=== PATIENT | female | born 1980 | race Caucasian/White ===

== ENCOUNTER 2016-06-14 06:00 | Inpatient (IN) ==
[2016-06-14] MEDS ORDERED: Metoclopramide 10 MG/2 ML VIAL IVP PRN (06:43)
[2016-06-14] MEDS ORDERED: Famotidine 20 MG/2 ML VIAL IVP PRN (06:43)
[2016-06-14] MEDS ORDERED: miSOPROStol 25 MCG TABLET VG PRN (06:43)
[2016-06-14 06:58] LABS: Basophils # 0.1 K/mcL (0.0-0.2); Basophils % 0.6 %; Eosinophils # 0.2 K/mcL (0.0-0.6); Eosinophils % 1.8 %; Hemoglobin 10.5 g/dL (11.5-15.4); Immature Granulocytes % 1.1 % (0-4); Immature Platelets 3.4 % (1.1-6.1); Lymphocytes # 1.7 K/mcL (0.6-4.6); Mean Corpuscular HGB Conc 33.9 g/dL (31.6-35.5); Mean Corpuscular Hemoglobin 32.3 pg (28.0-33.3); Mean Corpuscular Volume 95.4 fL (83.0-100.0); Mean Platelet Volume 9.2 fL (9.4-12.4); Monocytes # 0.7 K/mcL (0.0-1.3); Neutrophils # 7.2 K/mcL (1.6-8.9); Platelet Count 214 K/mcL (140-400); Red Blood Count 3.25 M/mcL (3.82-4.97); Red Cell Distribution Width 13.9 % (11.5-14.5); Segmented Neutrophils % 72.5 %
[2016-06-14] MEDS: Ringers Solution, Lactated 1,000 ML IVC SCH ×2 (08:04→14:54)
--- NOTE | 2016-06-14 08:21 | OB/GYN History & Physical ---
Date of Encounter: 06/14/16 Time of Encounter: 08:15 Assessment and Plan (1) and not yet delivered in third trimester Current visit: Yes Status: Acute (2) 40 weeks gestation of Current visit: Yes Status: Acute (3) Elective induction of labor planned Current visit: Yes Status: Acute Patient will be induced with Cytotec [place] catheter if contractions space out we will augment with Pitocin plan is to anticipate normal spontaneous vaginal delivery History of Present Illness HPI: Ms. Musa is a 35 year old female 3 para 2 at 40 and 0/7 weeks who presented to labor and delivery for induction of labor secondary to with favorable cervix. Patient's was complicated with BPD and head circumference measuring less than the 2nd percentile. Patient did see maternal medicine the filter was just constitutionally small and serial ultrasounds remain the same. Patient to get NSTs there was no change in heart rate. Patient has been having occasional contractions nothing that she can time, denies any leaking of fluid good movement. Patient has rubella positive, A-, GBS negative Past Med Surg Social Fam HX - Past Medical History Medical history: hypertension, migraine, other (Fibromyalgia) Psychiatric history: depression - Past Surgical History Surgical History: no surgical history - Social History Smoking Status: Current every day smoker Packs per day: .5 Smokeless Tobacco Status: No Alcohol use: none Drug use: none Occupational status: employed Current living situation: Home - Independent Activity Level: Independent ambulation Recent Out of Country Travel Within the Last 8 Weeks: No Exposure or Possible Exposure to Illness During Travel: No - Family History Mother Age: 58 Living Status: Still Living Hx Family Cardiac Disorders: Yes (HTN) Hx Family Respiratory Disorders: No Hx Family Cancer: No Hx Family GI Disorders: No Hx Family Genitourinary Disorders: No Hx Family Endocrine Disorder: No Hx Family Musculoskeletal Disorders: No Hx Family Neuromuscular Disorders: No Hx Family Neurologic Disorders: No Hx Family HEENT Disorders: No Hx Family Autoimmune Disorders: No Hx Family Reproductive Disorders: No Hx Family Psychosocial Disorders: No Hx Family Medical Disorders: Yes (DIABETIC) - Additional Family History Additional family history: Family history noncontributory Obstetrical History - Pregnancies : 3 Para: 2 Livin Medications and Allergies Tablet 1 tab PO DAILY 06/14/16 [History] Allergies Amoxicillin [From Augmentin] Allergy (Verified 12/19/14 10:17) Rash clavulanic acid [From Augmentin] Allergy (Verified 12/19/14 10:17) Rash Erythromycin Base Adverse Reaction (Verified 12/19/14 10:17) Hives prednisone Adverse Reaction (Verified 12/19/14 10:17) See Comments makes tongue raw Review of System OB All systems PM: reviewed and no additional remarkable complaints except as stated Exam - Vital Signs Vital signs: Initial Vital Signs Temp Pulse Resp BP 98.4 F 118 16 136/96 06/14/16 06:17 06/14/16 06:17 06/14/16 06:17 06/14/16 06:17 - Constitutional Constitutional: well developed, well nourished, no acute distress, average body habitus - Neck Neck exam: full ROM - Lungs Respiratory exam: CTAB - Cardiovascular Cardiovascular exam: RRR - Abdomen Abdomen: Present: bowel sounds normal, gravid - Cervix Dilation: 2 Effacement: 50 Station: -3 ([place] catheter placed 30 mL balloon inflated, 25 mg Cytotec placed vaginally) Results Result Diagrams: 06/14/16 06:40 Abnormal lab results RBC 3.25 M/mcL (3.82-4.97) L 06/14/16 06:40 Hgb 10.5 g/dL (11.5-15.4) L 06/14/16 06:40 Hct 31.0 % (35.3-44.9) L 06/14/16 06:40 MPV 9.2 fL (9.4-12.4) L 06/14/16 06:40 All other labs normal. - VTE Reasons for not Prescribing Prophylaxis: Treatment not Indicated - Low risk for VTE
--- NOTE | 2016-06-14 14:04 | OB Labor Progress Note ---
Date of Encounter: 06/14/16 Time of Encounter: 14:02 Labor Progress Note - Subjective Subjective: Pt reports minimal discomfort with contractions. - Cervix Cervix: 4/70/-1 - Heart Tones Heart Tones: Category I, difficulty obtaining continuous tracing by EFM due to maternal habitus - [place]: 2-3 minutes - Interventions Interventions: AROM for moderate amount light MSF. IUPC and FSE placed. - Plan Plan: Continue to monitor. Will augment with Pitocin if needed for adequate contractions. Epidural when requested. Anticipate .
--- NOTE | 2016-06-14 16:02 | OB Labor Progress Note ---
Date of Encounter: 06/14/16 Time of Encounter: 16:00 Labor Progress Note - Subjective Subjective: Pt reports more discomfort with contractions. - Cervix Cervix: no change, 4cm - Heart Tones Heart Tones: Category I - [place]: Q2-3 minutes - Plan Plan: Plan for pitocin augmentation at this time. Anticipate .
[2016-06-14] MEDS ORDERED: Oxytocin 20 units/ LR 1000 mL 20 UNIT/1,000 ML BAG IVC SCH ×2 (16:15→23:30)
[2016-06-14] MEDS ORDERED: *HR* FentaNYL (PF) 100 MCG/2 ML VIAL ONE (17:30)
[2016-06-14] MEDS ORDERED: Bupivacaine-MPF 0.25% 10 ML VIAL ONE (17:30)
[2016-06-14] MEDS ORDERED: *HR* FentaNYL (PF) 100 MCG/2 ML VIAL EP ONE (17:33)
[2016-06-14] MEDS ORDERED: Bupivacaine-MPF 0.25% 10 ML VIAL EP ONE (17:33)
[2016-06-14] MEDS ORDERED: Epidural Premix (fent/bupiv) 110 ML EP ONE (17:35)
[2016-06-14] MEDS ORDERED: Epidural Premix (fent/bupiv) 110 ML EP SCH (17:45)
--- NOTE | 2016-06-14 19:09 | OB Labor Progress Note ---
Date of Encounter: 06/14/16 Time of Encounter: 19:00 Labor Progress Note - Subjective Subjective: Patient more comfortable after her epidural - Cervix Cervix: 5-6/80/-3 - Heart Tones Heart Tones: heart tones 140s reactive occasional early decelerations and contractions every 2-3 minutes irregular - [place]: Contractions every 2-3 minutes irregular - Plan Plan: Continue current care anticipate vaginal delivery
--- NOTE | 2016-06-14 19:26 | Anesthesia Evaluation PreOp ---
Date of Encounter: 06/14/16 Time of Encounter: 11:20 - Past History Planned Operation: epidural Cardiac History: HTN (murmur as a child none now) Pulmonary History: Smoker (1/2 ppd x 15 years) CHEMICAL LABORATORY TECHNICIAN History: Other (passes out easily with needles) Other Medical History: Denies Any Significant HX Anesthesia History: No Prior Anesthetic Complications (vag delivery x 2, dental surgery) : Yes Test: Positive Alcohol Use: none Drug use: none Medications and Allergies Tablet 1 tab PO DAILY 06/14/16 [History] Allergies Amoxicillin [From Augmentin] Allergy (Verified 12/19/14 10:17) Rash clavulanic acid [From Augmentin] Allergy (Verified 12/19/14 10:) Rash Erythromycin Base Adverse Reaction (Verified 12/19/14 10:) Hives prednisone Adverse Reaction (Verified 12/19/14 10:) See Comments makes tongue raw - Meds/Allergy Pre-op Review Medications Reviewed: Yes Allergies Reviewed: Yes Beta Blockers on Current Med List: No Anesthesia Results - Labs 06/14/16 06:40 Anesthesia Exam 3 Vital Signs Time 1120 BP 121/60 Pulse 91 Resp 16 O2 Sat 98 Height: 68 Weight: 268 pounds NPO (# of Hours): clears Pain Scale: 6 Pain Scale Used: Numeric (1 - 10) - HEENT Pupil (Motor): Pupils equal Mallampati: III Teeth: Poor dentition Oral Opening: Greater than 3 - CHEMICAL LABORATORY TECHNICIAN LOC: Oriented CHEMICAL LABORATORY TECHNICIAN Motor: Normal RUE, Normal LUE, Normal RLE, Normal LLE, Normal Face CHEMICAL LABORATORY TECHNICIAN Sensory: Normal: RUE, LUE, RLE, LLE, Face - Cardiac Murmur: None JVD: No Carotid Bruit: No - Pulmonary Breath Sounds: bilateral Clear Respiratory Effort: Symmetrical Anesthesia Assess/Plan ASA Score: 3 Modified Eduar Scale for Level of Consciousness: Cooperative, oriented, and tranquil Anesthetic Plan: Regional Monitoring Plan: Standard Monitors Recovery Plan: Other
--- NOTE | 2016-06-14 19:34 | Anesthesia Procedures ---
Date of Encounter: 06/14/16 Time of Encounter: 17:50 Procedures: Anesthesia - Epidural/Spinal Patient ID/Chart reviewed: Yes Patient examined: Yes OB Eval: Gestational age: 40 weeks OB Eval: : 3 OB Eval: Hx Para: 2 OB Eval: Dilated at (cm): 4 OB Eval: Contractions: Non-stressed pattern Consent Obtained: Yes Supplemental Oxygen: None/Room Air Site Prep: Aseptic Technique, Sterile prep and drape, Povidone-Iodine 1% Patient position: upright Local Anesthetic: Lidocaine 1% Amount of Local Anesthetic used: 3 Touhy Needle Gauge: 18 Touhy Needle Depth (cm): 7 Catheter Depth at Skin (cm): 14 Test Dose (1.5% Lido + Epi): Volume given (mls): 3 Test Dose Result: Negative Loading Dose: 0.25% Marcaine (mls): 6 Loading Dose: Fentanyl (mcg): 100 Loading Dose: Other: 4 ml saline Loading Dose Administered: Thru Catheter Infusion Med: 0.125% Bupivacaine w/ 2 mcg/ml Fentanyl Infusion Rate (mls/hr): [address]: Tegaderm, Tape Interspace Used: L3-L4 Loss of Resistance (FREDY): Yes (air) Blood: No CSF: No Paresthesia: No Procedure: 3 Vital Signs Time 1749 start 1804 test 1813 bolus 1818 finish BP 129/73 136/79 138/66 128/63 Pulse 82 96 95 83 Resp 16 16 16 16 O2 Sat 98 98 98 98 heart tones 150's throughout
--- NOTE | 2016-06-14 23:22 | OB/GYN Procedure Note ---
Delivery - Delivery Date: 06/14/16 Provider: Wilian Garcia Intrapartum events: none Delivery induction: avendano, misoprostol Delivery augmentation: rupture of membranes, pitocin Delivery monitor: external FHT, external uterine, internal FHT, internal uterine Anesthesia: epidural Estimated Blood Loss: 200 - Infant (s) Infant A Delivery Date: 06/14/16 Infant Delivery Time: 23:02 Presentation: vertex Position: CELSA Route of delivery: Gender: Male Viability: Viable Pounds: 7 Ounces: 8 Weight Gram: 3.415 kg at 1 minute: 8 at 5 mins: 9 Shoulder Dystocia: not encountered Specimens collected: cord blood Placenta: spontaneous Cord: 3 umbilical vessels - Repair Episiotomy: none Laceration Description: None - Complications Delivery complications: none Delivery comments: Patient is a 35-year-old 3 para 2 at 40-0/7 weeks who is brought in for induction of labor secondary with favorable cervix. Patient's was complicated with 's head measuring out smaller than dates both on the biparietal diameter and head circumference. She had been seen by maternal medicine who felt this was just constitutionally small. Patient did get NSTs everything remain normal. Patient was brought in the Avendano catheter and Cytotec was placed once catheter had fallen out she was artificially ruptured with light meconium fluid. Patient received an epidural when she was 5-6 cm. Patient progressed slowly but appropriately became complete and pushed twice delivering a viable female in right occiput anterior presentation at 2302. There was no nuchal cord, no meconium, weight was 7 lbs. 8 oz. Placenta delivered spontaneously with a three-vessel cord, wiping cloth cutter Dr. Garcia, anesthesia is epidural, estimated blood loss 200 mL. Perineum cervix and vagina was well visualized intact. Patient tolerated delivery well will be observed 2 hours before being taken to floor. - Disposition Mom disposition: stable in LDR disposition: stable in LDR
[2016-06-14] MEDS ORDERED: Measles/Mumps/Rubella Vacc 0.5 ML VIAL SQ PRN (23:27)
[2016-06-14] MEDS ORDERED: Acetaminophen 325 MG TABLET PO PRN (23:27)
[2016-06-14] MEDS ORDERED: Rho Immune Globulin 1,500 UNIT SYRINGE IM PRN (23:27)
[2016-06-15 04:42] LABS: Basophils % 0.3 %; Eosinophils # 0.1 K/mcL (0.0-0.6); Eosinophils % 0.9 %; Hematocrit 28.4 % (35.3-44.9); Hemoglobin 9.7 g/dL (11.5-15.4); Immature Granulocytes % 0.6 % (0-4); Lymphocytes # 1.4 K/mcL (0.6-4.6); Lymphocytes % 10.4 %; Mean Corpuscular HGB Conc 34.2 g/dL (31.6-35.5); Mean Corpuscular Hemoglobin 32.9 pg (28.0-33.3); Mean Corpuscular Volume 96.3 fL (83.0-100.0); Mean Platelet Volume 9.5 fL (9.4-12.4); Monocytes # 1.1 K/mcL (0.0-1.3); Monocytes % 8.6 %; Neutrophils # 10.2 K/mcL (1.6-8.9); Platelet Count 170 K/mcL (140-400); Red Blood Count 2.95 M/mcL (3.82-4.97); Red Cell Distribution Width 13.7 % (11.5-14.5); Segmented Neutrophils % 79.2 %
--- NOTE | 2016-06-15 08:21 | OB/GYN Progress Note ---
Date of Encounter: 06/15/16 Time of Encounter: 08:18 - Assessment and Plan (1) Vaginal delivery Current Visit: Yes Status: Acute Continue routine care Subjective - Subjective Principal diagnosis: day 1 vaginal delivery Interval history: Patient resting in bed. Denies any pain but reports blood clots that are small but seem to be increasing. Patient reports IV is burning but she has to have it for the pitocin for bleeding. Will give cytotec 200mcg po x 1 and discontinue IV. Patient reports: appetite normal, voiding normally, pain well controlled, ambulating normally : doing well, bottle feeding Objective - Latest Vital Signs Latest vital signs: Vital Signs Temp Pulse Resp BP Pulse Ox 06/15/16 03:30 99 F 97 12 132/65 95 06/15/16 02:30 98.6 F 99 16 111/66 98 06/15/16 01:30 98 F 79 16 118/78 98 Intake and Output 06/14/16 06/15/16 06/15/16 23:59 07:59 15:59 Intake Total 1000 / 1000 Output Total 1250 / 1250 Balance -250 / -250 Intake: Intake, Autotransfusion 1000 / 1000 Amount Output: Urine 50 / 50 3-way Urethral 50 / 50 Estimated Blood Loss 200 / 200 Catheter 1000 / 1000 Other: Weight 117.7 kg Patient Weight 06/15/16 23:59 Weight 117.7 kg - Exam Lungs: bilateral: normal Chest: Normal S1, Normal S2 Extremities: Present: normal Abdomen: Present: normal appearance, soft Uterus: Present: normal, firm Uterus Position: At Umbilicus, Midline Comments: moderate amount of lochia with small blood clots. - Labs Labs: Laboratory Results - last 24 hr 06/15/16 04:12 WBC 12.9 H RBC 2.95 L Hgb 9.7 L Hct 28.4 L MCV 96.3 MCH 32.9 MCHC 34.2 RDW 13.7 Plt Count 170 MPV 9.5 Immature Gran % 0.6 Seg Neutrophils % 79.2 Lymphocytes % 10.4 Monocytes % 8.6 Eosinophils % 0.9 Basophils % 0.3 Neutrophils # 10.2 H Lymphocytes # 1.4 Monocytes # 1.1 Eosinophils # 0.1 Basophils # 0.0
[2016-06-15] MEDS ORDERED: miSOPROStol 100 MCG TABLET PO STA (08:22)
[2016-06-15] MEDS ORDERED: NON-FORMULARY MEDICATION 1 EACH EACH (Prenatal Tablet 1 TAB) PO SCH (09:00)
[2016-06-15] MEDS: Ibuprofen 600 MG TABLET PO PRN ×2 (09:35→20:25)
[2016-06-15] MEDS: Prenatal Vit/FA 1 EACH TABLET PO SCH (09:35)
[2016-06-16] MEDS: Ibuprofen 600 MG TABLET PO PRN (07:52)
[2016-06-16] MEDS: Prenatal Vit/FA 1 EACH TABLET PO SCH (07:52)
[2016-06-16 07:53] VITALS: BP 129/81
--- NOTE | 2016-06-16 08:08 | Discharge Summary ---
Date of Encounter: 06/16/16 Time of Encounter: 08:06 - Discharge Diagnosis (1) Vaginal delivery Priority: Primary Status: Acute Comments: Patient doing well s/p day 2. States that her lochia is light and without clots Her pain is well controlled. She is able to urinate without pain or difficulty and is able to pass gas; she has yet to have a bowel movement She is bottle feeding She would like to be discharged home today (2) Anemia complicating puerperium Priority: Secondary Status: Acute Comments: Patient denies symptoms of anemia; vital signs stable Continue with ferrous sulfate 325mg po daily until follow up in office in 6 weeks. - Discharge Medications Prescriptions: Ibuprofen [Motrin] 600 mg PO Q6HR PRN #60 tablet PRN Reason: Cramping Docusate [Colace] 100 mg PO BID #20 capsule Ferrous Sulfate 325 mg PO DAILY #60 tablet Home Medications: Tablet 1 tab PO DAILY 06/14/16 [History] Docusate [Colace] 100 mg PO BID #20 capsule 06/16/16 [Rx] Ferrous Sulfate 325 mg PO DAILY #60 tablet 06/16/16 [Rx] Ibuprofen [Motrin] 600 mg PO Q6HR PRN #60 tablet 06/16/16 [Rx] Allergies/Adverse Reactions: Allergies Amoxicillin [From Augmentin] Allergy (Verified 12/19/14 10:17) Rash clavulanic acid [From Augmentin] Allergy (Verified 12/19/14 10:17) Rash Erythromycin Base Adverse Reaction (Verified 12/19/14 10:17) Hives prednisone Adverse Reaction (Verified 12/19/14 10:17) See Comments makes tongue raw Data Procedures and tests throughout hospitalization: Laboratory Tests 06/14/16 06/14/16 06/15/16 06:40 23:20 04:12 WBC 9.9 12.9 H RBC 3.25 L 2.95 L Hgb 10.5 L 9.7 L Hct 31.0 L 28.4 L MCV 95.4 96.3 MCH 32.3 32.9 MCHC 33.9 34.2 RDW 13.9 13.7 Plt Count 214 170 MPV 9.2 L 9.5 Immature Gran % 1.1 0.6 Seg Neutrophils % 72.5 79.2 Lymphocytes % 17.0 10.4 Monocytes % 7.0 8.6 Eosinophils % 1.8 0.9 Basophils % 0.6 0.3 Neutrophils # 7.2 10.2 H Lymphocytes # 1.7 1.4 Monocytes # 0.7 1.1 Eosinophils # 0.2 0.1 Basophils # 0.1 0.0 Immature Plt Fraction 3.4 Screen NEGATIVE Baby's Blood Type A RH POSITIVE Mother's Blood Type A RH NEGATIVE Rhogam Indicated YES Rhogam Req for Mother 1 Labs on day of discharge: Labs from last 24 hours 06/14/16 23:20 Screen NEGATIVE Baby's Blood Type A RH POSITIVE Mother's Blood Type A RH NEGATIVE Rhogam Indicated YES Rhogam Req for Mother 1 Date of admission: 06/14/16 06:02 Primary care physician: Ever Iniguez MD Consults: 06/14/16 23:27 Consult to Back Seam Stitcher [CONS] Routine Comment: Vaginal delivery, consult needed Discharging clinician: Barbie Blandon Anticipated date of discharge: 06/16/16 - Patient Status Disposition: Home, Self-Care Condition: Good Functional capacity at discharge: independent ambulation - Discharge Instructions Follow Up With: Ever Iniguez MD [Primary Care Provider] - Wilian Garcia DO [Partnered Physician] - - Diet and Activity Activity: increase activity as tolerated Diet: regular diet Hospital Course Reason for admission: induction of labor, IUP at term Delivery: Episiotomy: none Laceration: none Other procedures: none complications: none Discharge diagnosis: IUP at term delivered [place] baby: female Time Attestation: Total time spent providing and/or coordinating discharge services: Time Spent: Less than 30 minutes Exam - Constitutional Vitals: Temp Pulse Resp BP Pulse Ox 98 F 72 14 129/81 99 06/16/16 07:20 06/16/16 07:20 06/16/16 07:20 06/16/16 07:20 06/16/16 07:20 General appearance IM: cooperative, A&O X 3, pleasant - Respiratory Respiratory exam: Present: CTAB - Cardiovascular Cardiovascular exam IM: Present: RRR, +S1, +S2 - GI/Abdominal GI/Abdominal exam IM: normal bowel sounds, soft - Rectal Rectal exam: deferred - Uterine Tone: Firm Uterus Position: 2 Fingers Below Umbilicus, Midline - Extremities Exam Extremities exam IM: Present: normal capillary refill, normal inspection, radial pulses palpable and symetrical. Absent: pedal edema, tenderness - Neurological Exam Neurological exam: alert, oriented X3, reflexes normal
== END 2016-06-16 10:50 | disposition home or self-care (01) | DRG 560 ==
LOC: 1NENULAB 06:02 → 1NENUOBS 06-15 01:27
PROVIDERS: ADMIT Obstetrics & Gynecology; ATTEND Obstetrics & Gynecology

== ENCOUNTER 2017-10-01 16:42 | Observation (INO) ==
[2017-10-01] MEDS ORDERED: Naloxone 0.4 MG/ML INJ IVP PRN (19:49)
--- NOTE | 2017-10-01 19:49 | Internal Med History&Physical ---
Date of Encounter: 10/01/17 Time of Encounter: 07:25 Internal Medicine - H&P: HPI Chief complaint: Bee sting Admitted From: Hospital to Hospital Transfer Plans for Post Hospital Care: Home History of present illness: Ms. Larry is a 37 year old female with history of hypertension, depression, chronic pain who presented to [place] [facility] following a series of yellowjacket stings this morning. She says that she was at a family reunion earlier this morning and was Tuesday yellowjacket on her right hand and her right ankle. She said that she immediately began to feel very itchy, and she took a Benadryl. Approximately 20 minutes later she felt that she still is very itchy and it was beginning to feel episodes all over her body so she took another Benadryl. She felt that this itchiness was beginning to spread and she felt that she was developing a hardness in her lips with some tingling associated with it. She took another Benadryl and immediately at that time presented to [place] [facility] for concern that she was having an allergic reaction. She said that while traveling to [place] ED she began to feel nauseated, and also developed some lightheadedness and dizziness. She does admit to having some swelling in her hand and at the location of her ankle where the stings occurred. She does not feel that she had any swelling in her mouth, tongue, throat. At no time during this process to she feel that she had any respiratory compromise. She never felt short of breath nor did she ever have any chest pain during this time. She also never felt that she had any wheezing nor could she hear any wheezing or high-pitched sounds. She has never had anything like this happen in response to any sort of insect sting in the past, nor has she had a severe allergic reaction to any sort of food product in the past. At the emergency department, she was found to have substantial hypotension with a blood pressure 54/20. At that time, the patient apparently received a dose of Benadryl, Pepcid, prednisone as well as 0.3 mg IM epinephrine and 1 L IV fluids which brought her blood pressure up and improved the patient's symptoms dramatically. The patient was requesting to leave at that time, however about 2 hours later the patient began to feel ill again, and her blood pressure then dropped to a low of 67/39 at which time she received another dose of epinephrine at 0.5 mg IM another 1 L IV fluid. The patient has since remained hemodynamically stable, however she was transferred to [facility] has [facility] did not have any ICU beds available. She has no other acute complaints at this time. PMH: Depression, HTN, Chronic pain, Migraines Fam Hx: Mom Htn, Dm, Depression. Dad small cell cancer, skin cancer, htn Surgical Hx: Noncontributory Social Hx: Current smoker 1ppd, denies alcohol or illicit drug use Past Med Surg Social Fam HX - Past Medical History Medical history: hypertension, migraine Psychiatric history: depression - Past Surgical History Surgical History: no surgical history Additional surgical history: DENTAL SURGERIES - Social History Smoking Status: Current every day smoker Packs per day: 1 Smokeless Tobacco Status: No Alcohol use: none Drug use: none - Family History Mother Living Status: Still Living Hx Family Cardiac Disorders: Yes (HTN) Hx Family Respiratory Disorders: No Hx Family Cancer: No Hx Family GI Disorders: No Hx Family Endocrine Disorder: No Hx Family Neuromuscular Disorders: No Hx Family Neurologic Disorders: No Hx Family HEENT Disorders: No Hx Family Autoimmune Disorders: No Internal Medicine - H&P: Meds DULoxetine [Cymbalta] 30 mg PO DAILY 07/29/16 [History] Norgestimate-Ethinyl Estradiol [Mononessa 28 Tablet] 1 each PO DAILY 07/29/16 [ History] Albuterol Sulfate [Albuterol Inhaler] 2 puff IH Q4HR PRN #1 hfa.[email or web address] 10/24/16 [Rx] 3 Allergy/AdvReac Type Severity Reaction Status Date / Time Amoxicillin [From Augmentin] Allergy Rash Verified 10/24/16 16:30 clavulanic acid Allergy Rash Verified 10/24/16 16:30 [From Augmentin] Erythromycin Base AdvReac Hives Verified 10/24/16 16:30 prednisone AdvReac See Verified 10/24/16 16:30 Comments All Systems PM: A 10-system review of systems was performed and is negative for pertinent findings except as documented above in the HPI. Review of systems: Constitutional: Denies fevers, chills, weight loss, generalized fatigue Head/Neck: Denies OHARA, neck stiffness EENT: Denies vision changes/blurriness, rhinorrhea, congestion, sore throat CVS: Denies chest pain, palpitations, GRIGGS, orthopnea, edema, PND Pulm: Denies SOB, cough, sputum, hemoptysis, wheezing GI: Denies abdominal pain, nausea, vomiting, diarrhea, constipation, melena, hematemasis : Denies dysuria, increased frequency, urgency, hematuria Heme: Denies ease of bleeding or bruising MSK: Denies joint pain, limited ROM Skin: Denies rashes, ulcers, color changes. Admits to some edema at site of Stings Neuro: Denies OHARA, paresthesias, focal deficits, ataxia - Constitutional Vitals: Temp Pulse Resp BP Pulse Ox 99.6 F 86 20 112/80 99 10/01/17 18:30 10/01/17 18:30 10/01/17 18:30 10/01/17 18:30 10/01/17 18:30 Exam: Gen: Vitals noted. No acute distress. HEENT: Normocephalic, atraumatic Neck: Supple. No adenopathy. Cardiac: RRR, no murmur, +S1/S2 Pulmonary: CTA bilaterally, no wheezes, rales or rhonchi, equal chest expansion Abdomen: soft, nontender, no guarding Back: Nontender throughout. MSK: ROM intact, no joint swelling noted Extremities: no BLE edema, nontender calf, no cyanosis or clubbing. There is 2+ nonpitting edema with erythema present in the right hand consistent with insect sting. Minimal erythema present in right ankle where insect sting occurred. some evidence of chronic venous stasis Neuro: moves all extremities, no focal deficits. A&Ox3 Psych: Appropriate mood and behavior - Assessment and plan (1) Anaphylactic reaction Current Visit: Yes Status: Acute Assessment and plan: Anaphylactic reaction secondary to insect sting Patient has demonstrated delayed reaction requiring 2 doses of IM epinephrine At this time the patient's vitals remain stable, blood pressure upon arrival 112 /80, steadily increasing Physical exam is benign, there is no evidence of respiratory compromise at this time We will continue to monitor for possible delayed reaction Plan: -Cardiac and pulse ox monitoring -Monitor vitals Qualifiers: Encounter type: initial encounter Qualified Code(s): T78.2XXA - Anaphylactic shock, unspecified, initial encounter (2) Depression Current Visit: No Status: Chronic Assessment and plan: Hirst[place] of depression per patient Chronic, stable. No SI/HI Continue home meds Qualifiers: Depression Type: unspecified Qualified Code(s): F32.9 - Major depressive disorder, single episode, unspecified (3) Chronic pain Current Visit: Yes Status: Acute Assessment and plan: Chronic low back pain Patient apparently takes percocet at home for pain PRN I am concerned about potential for respiratory compromise cnsidering anaphylaxis Will provide tylenl/toradol prn for pain Qualifiers: Chronic pain type: other chronic pain Qualified Code(s): G89.29 - Other chronic pain (4) Tobacco abuse Current Visit: Yes Status: Acute Assessment and plan: nicotine patch prn - Time Spent With Patient Total time spent is greater than 50% in coordination of care (as documented) at patient's floor/unit and/or counseling patient:
[2017-10-01 20:28] LABS: Basophils % 0.2 %; Eosinophils % 0.2 %; Hematocrit 37.6 % (35.3-44.9); Hemoglobin 12.7 g/dL (11.5-15.4); Immature Granulocytes % 0.4 % (0-4); Lymphocytes # 0.3 K/mcL (0.6-4.6); Lymphocytes % 6.7 %; Mean Corpuscular HGB Conc 33.8 g/dL (31.6-35.5); Mean Corpuscular Hemoglobin 31.8 pg (28.0-33.3); Mean Corpuscular Volume 94.2 fL (83.0-100.0); Mean Platelet Volume 9.4 fL (9.4-12.4); Monocytes # 0.1 K/mcL (0.0-1.3); Monocytes % 2.8 %; Neutrophils # 4.4 K/mcL (1.6-8.9); Platelet Count 199 K/mcL (140-400); Red Blood Count 3.99 M/mcL (3.82-4.97); Segmented Neutrophils % 89.7 %
[2017-10-01 20:42] LABS: Alanine Aminotransferase 12 Units/L (7-52); Albumin 3.6 g/dL (3.5-5.7); Albumin/Globulin Ratio 1.2 (1.1-2.2); Alkaline Phosphatase 62 Units/L (34-104); Aspartate Amino Transferase 11 Units/L (13-39); BUN/Creatinine Ratio 10 (6-26); Bilirubin,Total 0.2 mg/dL (0.3-1.0); Blood Urea Nitrogen 8 mg/dL (6-20); Calcium 8.3 mg/dL (8.6-10.3); Carbon Dioxide 22 mEq/L (23-29); Chloride 111 mEq/L (98-107); Glucose 191 mg/dL (70-105); Magnesium 1.6 mg/dL (1.6-2.6); Osmolality,Calculated 287 (280-300); Potassium 4.1 mEq/L (3.5-5.1); Sodium 137 mEq/L (136-145); Total Protein 6.6 g/dL (6.4-8.9); eGFR For Non-African Americans > 60 (> 60)
[2017-10-01] MEDS: Topiramate 100 MG TABLET PO SCH (21:32)
[2017-10-02 08:54] VITALS: BP 128/83
[2017-10-02] MEDS: Topiramate 100 MG TABLET PO SCH (09:16)
--- NOTE | 2017-10-02 10:48 | Discharge Summary ---
Date of Encounter: 10/02/17 Time of Encounter: 10:30 - Discharge Diagnosis (1) Anaphylactic reaction Priority: Primary Status: Acute Qualifiers: Encounter type: initial encounter Qualified Code(s): T78.2XXA - Anaphylactic shock, unspecified, initial encounter (2) Chronic pain Priority: Secondary Status: Chronic Qualifiers: Chronic pain type: other chronic pain Qualified Code(s): G89.29 - Other chronic pain (3) Depression Priority: Secondary Status: Chronic Qualifiers: Depression Type: unspecified Qualified Code(s): F32.9 - Major depressive disorder, single episode, unspecified Hospital course: This 37-year-old woman was admitted to the hospitalist service after she had developed a severe anaphylactic reaction triggered by 2 stings from yellow jackets. She initially developed a generalized body itching, followed by progressing swelling in the areas of stings, followed by progressing swelling of her lips, mouth, tongue and throat. She was noticed to be hypotensive in the emergency room. She initially responded to treatment with IV fluids, Benadryl, Pepcid, Benadryl and intramuscular epinephrine. Those treatments help her blood pressure only for a couple hours. Then, she became hypotensive again. She got IV fluids and intramuscular epinephrine again. Then, she was brought to intensive care unit. During her stay in ICU the patient remained stable. We did not have any problems with her hypotension any more. CONDITION AT DISCHARGE: She feels good today. All her symptoms mentioned above subsided. She ambulates on her own. He has no problems with swallowing or speech. Denies itching of her skin. Denies dizziness/lightheadedness. Denies coughing and wheezing. Skin: Free of rash and discoloration. Respiratory: Normal breath sounds with no crackles and wheezes bilaterally. CV: Heart is regular with no gallop or murmur. GI: Abdomen is flat and soft with no palpable mass or visceromegaly. Neuro exam: There is no focal deficits. Normal speech, swallowing and gait. SEE DISCHARGE ORDERS/MEDICATIONS.. I gave her a prescription for EpiPen kit. Discharge discussed with: patient, nurse - Time Spent with Patient Total time spent providing and/or coordinating discharge services: Greater than 30 minutes (40 minutes) - Discharge Medications Prescriptions: DiphenhydraMINE [Benadryl] 25 mg PO QID #12 capsule EPINEPHrine [Epipen] 0.3 mg IM ONCE PRN #1 kit PRN Reason: Anaphylaxis raNITIdine HCl [Zantac] 150 mg PO DAILY #3 tablet Home Medications: DiphenhydraMINE [Benadryl] 25 mg PO QID #12 capsule 10/02/17 [Rx] Duloxetine HCl [Cymbalta] 60 mg PO DAILY 10/02/17 [History] EPINEPHrine [Epipen] 0.3 mg IM ONCE PRN #1 kit 10/02/17 [Rx] Norgestimate-Ethinyl Estradiol [Estarylla 0.25-0.035 mg Tablet] 1 tab PO DAILY 10/02/17 [History] OxyCODONE/APAP 5/325 [Percocet 5/325 MG] 1 each PO Q6HR PRN 10/02/17 [History] Topiramate [Topamax] 100 mg PO BID 10/02/17 [History] raNITIdine HCl [Zantac] 150 mg PO DAILY #3 tablet 10/02/17 [Rx] Allergies/Adverse Reactions: 3 Allergy/AdvReac Type Severity Reaction Status Date / Time Amoxicillin [From Augmentin] Allergy Rash Verified 10/24/16 16:30 clavulanic acid Allergy Rash Verified 10/24/16 16:30 [From Augmentin] Erythromycin Base AdvReac Hives Verified 10/24/16 16:30 prednisone AdvReac See Verified 10/24/16 16:30 Comments Date of admission: 10/01/17 18:08 Primary care physician: Ever Iniguez MD Discharging clinician: Gregg Chamorro Anticipated date of discharge: 10/02/17 - Constitutional General appearance: Present: A&O X 3, no acute distress, answers questions appropriately Exam: xxx - Constitutional Vitals: Temp Pulse Resp BP Pulse Ox 98.2 F 78 16 128/83 99 10/02/17 07:41 10/02/17 09:00 10/02/17 09:00 10/02/17 09:00 10/02/17 09:00 General appearance: Present: A&O X 3, no acute distress, answers questions appropriately - Patient Status Disposition: Home, Self-Care Condition: Good Functional capacity at discharge: independent ambulation Overall status at discharge: patient is back to baseline - Discharge Instructions Instructions: How to Stop Smoking (DC), Insect Bite or Sting (DC) Follow Up With: Ever Iniguez MD [Primary Care Provider] - - Diet and Activity Activity: resume usual activities as tolerated - VTE Reasons for not Prescribing Prophylaxis: Treatment not Indicated - Low risk for VTE
== END 2017-10-02 11:05 | disposition home or self-care (01) ==
LOC: ICNU 18:08 → INTOOBSV 18:08 → SUATTDRO 18:08
PROVIDERS: ADMIT Internal Medicine; ATTEND Internal Medicine